=== PATIENT | female | born 1985 | race Caucasian/White ===

== ENCOUNTER → 2016-05-27 | Outpatient (CLI) | payer BC, OTHER ==
[~2016-05-27] MED LIST: PRENTAB26 PO
== END | disposition home or self-care (01) ==
LOC: C.PAPS 05-26 11:57
PROVIDERS: ATTEND Physician Assistant
DX: Z01.419 Encounter for gynecological examination (general) (routine) without abnormal findings (principal)

== ENCOUNTER → 2016-06-01 | Outpatient (CLI) | payer BC ==
[2016-06-01 18:17] LABS: BASO % 0.5 %; BASO ABS # 0.04 K/uL (0-0.2); COMPLETE YES; EOS % 1.7 %; HEMATOCRIT 39.5 % (37-47); IG% 0.1 %; LYMPH % 31.4 %; LYMPH ABS # 2.76 K/uL (1.2-3.4); MEAN CELL VOLUME 86.1 fL (80-100); MEAN CORPUSCULAR HEMOGLOBIN 29.6 pg (25-34); MEAN CORPUSCULAR HGB CONC 34.4 g/dl (32-36); MEAN PLATELET VOLUME 10.8 fL (7.4-10.4); MONO % 7.9 %; NEUT % 58.4 %; PLATELET COUNT 226 K/uL (130-400); RED BLOOD COUNT 4.59 M/uL (4.2-5.4); WHITE BLOOD COUNT 8.78 K/uL (4.8-10.8)
--- NOTE | 2016-06-01 19:06 | DIAGNOSTIC IMAGING REPORT ---
ULTRASOUND OF THE PELVIS CLINICAL HISTORY: Dysmenorrhea. COMPARISON STUDY: No priors. TECHNIQUE: Real-time, grayscale, and color flow sonography of the pelvis is performed both transabdominally and endovaginally. Images are reviewed in the transverse and longitudinal planes. FINDINGS: Uterus: The uterus is normal in size and echotexture, measuring 8.9 x 3.5 x 5.2 cm. Endometrium: The endometrium is thickened in the fundal region measuring up to 1.8 cm. Subcentimeter cystic foci are observed. No abnormal vascularity is identified on color imaging. Ovaries: The ovaries are normal in size and morphology. The right ovary measures 3.2 x 1.8 x 2.2 cm and the left ovary measures 4.1 x 2.1 x 2.4 cm. There are small bilateral ovarian follicles. A 2.3 cm complex/hemorrhagic follicle is noted on the left. Normal Doppler waveforms are shown within both ovaries. Pelvis: There is trace free fluid in the cul-de-sac and left adnexa. No concerning adnexal lesion is seen. IMPRESSION: 1. The endometrium appears thickened measuring up to 1.8 cm with tiny cystic foci. No abnormal vascularity is seen on color imaging. 2. The ovaries are normal as imaged. 3. Trace and likely physiologic free fluid is noted in the pelvis. Electronically signed by: Joaquin Pinto M.D. 06/01/2016 7:05 PM Dictated Date/Time: 06/01/2016 7:03 PM
== END | disposition home or self-care (01) ==
LOC: C.ULTR 17:52
PROVIDERS: ATTEND Obstetrics & Gynecology
DX: N94.6 Dysmenorrhea, unspecified (principal)

== ENCOUNTER → 2016-06-08 | Outpatient (CLI) | payer BC | END | disposition home or self-care (01) | LOC: C.LAB 17:57 | PROVIDERS: ATTEND Obstetrics & Gynecology | DX: Z32.01 Encounter for pregnancy test, result positive (principal) ==

== ENCOUNTER 2016-11-09 14:40 | Outpatient (CLI) | payer BC ==
[~2016-11-09] VITALS: Ht 157.5 cm; Wt 61.0 kg
[2016-11-09 15:52] VITALS: Ht 157.5 cm; Wt 61.0 kg
[2016-11-09] MEDS ORDERED: PRENTAB26 PO (15:52)
[2016-11-09] MEDS ORDERED: BETAMETH SOD PHOS/ACETATE IA 6 MG/ML ONE (16:58)
[2016-11-09] MEDS ORDERED: AMPICILLIN IV 2,000 MG in SODIUM CHLOR 0.9% AD-VAN 100ML 100 ML IV SCH (17:00)
[2016-11-09] MEDS ORDERED: AZITHROMYCIN 250 MG TAB PO ONE (17:00)
[2016-11-09] MEDS ORDERED: MAGNESIUM SULFATE / WTR 1,000 ML IV ONE (17:01)
--- NOTE | 2016-11-09 17:01 | DIAGNOSTIC IMAGING REPORT ---
LIMITED ([place]) CLINICAL HISTORY: 26 weeks; bleeding; check cervical length; r/o abruption; ASHLEY TECHNIQUE: Ultrasound COMPARISON STUDY: 06/01/2016 FINDINGS: Single, viable intrauterine . Estimated gestational age is 26 weeks 4 days. Amniotic fluid index 3 cm. Cephalic presentation. Fundal placenta. IMPRESSION: Single, viable intrauterine of approximately 26 weeks 4 days gestational age. Amniotic fluid index is low at 3 cm. Cephalic presentation. Maternal cervix is closed with a length of 4 cm. The above report was generated using voice recognition software. It may contain grammatical, syntax or spelling errors. Electronically signed by: Vasquez Maddox M.D. 11/09/2016 4:59 PM Dictated Date/Time: 11/09/2016 4:57 PM
--- NOTE | 2016-11-09 17:03 | HISTORY & PHYSICAL EXAMINATION ---
DATE OF ADMISSION: 11/09/2016 CHIEF COMPLAINT: Intrauterine 26 weeks 5 days, vaginal bleeding, mild contractions. HISTORY OF PRESENT ILLNESS: The patient is a 30-year-old 1, para 0. She has had an uneventful course. She has been well dated with a first trimester ultrasound. Her due date is 02/11/2017. She complained of some vaginal bleeding when she went to void at 1:45 p.m. the date of admission. Soon after that she had some additional bleeding with what she describes as a gush of fluids. Since that time she has had some mild cramping. ALLERGIES: ALLERGIC TO IBUPROFEN. PAST SURGICAL HISTORY: She had polyps removed from her colon. She has wisdom teeth removed. MEDICAL HISTORY: No history of rheumatic fever, heart disease, heart murmur, diabetes, tuberculosis. SOCIAL HISTORY: No smoking. No alcohol intake. Works as a teacher. FAMILY HISTORY: Mom is 60 in good health. Father 60 in good health, 1 brother, 2 sisters and a half-brother all in good health. REVIEW OF SYSTEMS: HEAD: No symptoms of frequent or severe headaches. EYES: No symptoms of blurred vision, double vision. EARS: No symptoms of frequent ear infection, difficulty hearing. NOSE: No symptoms of frequent nosebleeds, difficulty breathing through her nose. THROAT: No symptoms of frequent or severe sore throat, difficulty swallowing. RESPIRATORY SYSTEM: No history of asthma, chest pain, shortness of breath. PHYSICAL EXAMINATION: GENERAL: Well-developed, well-nourished 30-year-old white female, alert, oriented x3 and cooperative in no acute distress, appears stated age. EYES: Conjunctivae are pink. Sclerae white. No evidence of jaundice. EARS: Had normal light reflex bilaterally. NOSE: Had normal mucosa. Septum is midline. There were no polyps. THROAT: No erythema or evidence of infection. Teeth are in good state of repair. HEAD: Was normocephalic, normal distribution of hair. NECK: Supple. Trachea midline. Thyroid is not enlarged. There is no adenopathy appreciated. Both carotids are of good intensity. CHEST: Clear to auscultation and percussion. No wheezes, rales or rhonchi appreciated. HEART: Had regular rhythm. S1 and S2 were normal. MUSCULOSKELETAL EXAMINATION: Revealed no calf tenderness. PELVIC EXAMINATION: Revealed the cervix to be closed, posterior, firm and moderate amount of dark nonclotting blood on exam. IMPRESSIONS OF THIS CASE: Oligohydramnios, suspected rupture of membranes, partial separation of placenta.
[2016-11-09] MEDS ORDERED: MAGNESIUM SULFATE 4GM / WTR 4 GM BAG ONE (17:05)
[2016-11-09] MEDS ORDERED: MAGNESIUM SULFATE 40GM/ WTR 1,000 ML BAG ONE (17:05)
[2016-11-09] MEDS ORDERED: BETAMETH SOD PHOS/ACETATE IA 6 MG/ML IM SCH (17:15)
[2016-11-09] MEDS ORDERED: LIDOCAINE HCL 2% JELLY 30 ML TUBE EXT ONE (17:57)
== END 2016-11-09 18:25 | disposition short-term general hospital (02) ==
LOC: C.OPB 14:40 → C.LD 14:41 → C.OPB 18:25
PROVIDERS: ATTEND Obstetrics & Gynecology
DX: O46.92 Antepartum hemorrhage, unspecified, second trimester (principal); O41.02X0 Oligohydramnios, second trimester, not applicable or unspecified; Z3A.26 26 weeks gestation of pregnancy; Z86.010 Personal history of colon polyps

== ENCOUNTER → 2017-06-20 | Outpatient (CLI) | payer OTHER | END | disposition home or self-care (01) | LOC: C.PAPS 14:38 | PROVIDERS: ATTEND Obstetrics & Gynecology | DX: Z39.2 Encounter for routine postpartum follow-up (principal) ==